=== PATIENT | female | born 2000 | race Caucasian/White ===

== ENCOUNTER → 2019-06-24 | Outpatient (CLI) | payer BC ==
[2019-06-24 12:34] VITALS: BP 142/90; PULSE 122; RESP 20; TEMP 98.5; BMI 38.1
--- NOTE | 2019-06-24 13:10 | P.GSHP ---
History of Present Illness H&P Date: 06/24/19 Chief Complaint: Sores under both breast Lety is a 18-year-old white female with a complaint of bilateral inferior breast sores. This was on her breast. They have been present for about 2 years. They never go away completely. The areas to drain at times. These have never been treated before. She does not develop them on the upper part of her breast. She states that her breasts are sore all the time. This is not related to her menstrual cycle. She has had intermittent nodularity which goes away. She has never had a mammogram ultrasound. She does not feel any lumps or masses in her breast at this time. The patient does not drink any caffeinated beverages. She does not smoke and is not exposed to secondhand smoke. She eats chocolate only occasionally. Family History: maternal grandmother: of breast cancer dx. in her 30's maternal grandfather: prostate cancer maternal grandmother: breast cancer maternal great aunts (two): breast cancer both in their 50's paternal uncle: bladder cancer paternal uncle: lung cancer Patient's father is on dialysis for 15 years secondary to renal failure related to diabetes and hypertension Hormonal History: menarche: 11 periods: on BCP to regulate them, had polycystic ovarian disease and had not had periods for a long period of time until started on control pills G0 not sexually active BCP: 8 months hormones: none Past surgical history: Tonsils, adenoids, and teeth removed. Multiple myringotomies and tubes placed in her ears Medical history: HTN Diabetic Tachycardia high triglycerides Social History: smoke: none alcohol: none drugs: none - Constitutional Constitutional: Reports sweats - EENT Eyes: denies blurred vision, denies pain Ears: deny: decreased hearing, tinnitus Ears, nose, mouth and throat: Reports headache, Denies sore throat - Breasts Breasts: bilateral: as per HPI - Cardiovascular Cardiovascular: Reports high blood pressure - Respiratory Respiratory: Denies cough, Denies 7 - Gastrointestinal Comment: PUD, reflux - Genitourinary (Female) Comment: polycystic ovarian disease - Menstruation Comment: cycle regular on BCP - Musculoskeletal Musculoskeletal: Denies myalgias - Integumentary Integumentary: Denies pruritus, Denies rash - Neurological Neurological: Denies numbness, Denies weakness - Psychiatric Comment: spent 2 weeks in [facility], stroke or suicidal and cutting, history of bipolar Psychiatric: Reports anxiety, Reports depression - Endocrine Comment: pre-diabetic - Hematologic/Lymphatic Comment: none - Allergic/Immunologic Allergic/Immunologic: Reports as per HPI Past Medical History Past Medical History: Hypertension Past Surgical History: Adenoidectomy, Tonsillectomy Past Psychological History: ADD/ADHD, Anxiety, Bipolar, Depression Smoking Status: Never smoker Medications and Allergies Home Medications Medication Instructions Recorded Confirmed Type Ergocalciferol (Vitamin D2) 50,000 unit PO WEEKLY 06/24/19 06/24/19 History [Vitamin D2] Fenofibrate 120 mg PO HS 06/24/19 06/24/19 History Lisinopril [Zestril] 10 mg PO HS 06/24/19 06/24/19 History Melatonin 5 mg PO HS 06/24/19 06/24/19 History Metoprolol Succinate (ER) [Toprol 50 mg PO HS 06/24/19 06/24/19 History Xl] Norgestimate-Ethinyl Estradiol 1 tab PO HS 06/24/19 06/24/19 History [Sprintec 28 Day Tablet] Omeprazole 20 mg PO HS 06/24/19 06/24/19 History metFORMIN HCL [metFORMIN HCL ER 1,000 mg PO BID 06/24/19 06/24/19 History Osmotic] Allergies Allergy/AdvReac Type Severity Reaction Status Date / Time Cephalosporins Allergy Rash/Hives Unverified 06/24/19 12:11 Penicillins Allergy Rash/Hives Unverified 06/24/19 12:11 Sulfa (Sulfonamide Allergy Rash/Hives Unverified 06/24/19 12:11 Antibiotics) Surgical - Exam BMI 38.1 - General obese - Eyes normal ocular movement - ENT no hearing loss, no congestion - Neck no masses, trachea midline, no venous distension - Respiratory normal respiratory effort, clear to auscultation - Cardiovascular Rhythm: regular - Abdomen Abdomen: soft, non tender, no guarding, no rigid, no rebound - Integumentary Examination integument reveals pockmarks associated with folliculitis in intermittent stages of healing - Neurologic no disoriented, no combative - Musculoskeletal normal gait, normal posture - Psychiatric oriented to time, oriented to place, memory intact Breast examination: Right breast: Multiple positional exam no dominant masses or nodules of concern, fibrocystic changes On the inferior surface of the breasts are pockmarks which appear to be associated with folliculitis and intermittent stages of healing, there is nothing that is present to drain at the present time Right axilla: No adenopathy of concern Left breast: Multi-positional exam no dominant masses or nodules of concern, fibrocystic changes, and inferior surfaces of the breast are pockmarks which appear to be associated with folliculitis and intermittent stages of healing Patient states she has back pain related to the size of her breast and the fact that she slouch is related to the large size of her breasts. The patient also complains of indentation in her shoulders related to her bra straps and this heaviness of her breast. Bra size 44DD Assessment and Plan Assessment: Impression: 1. Fibrocystic breast changes 2. Folliculitis: Related to large size of breast, patient accumulates in the breast 3. High risk breast cancer with family history 4. Back pain related to large size of breast 5. Hypertension 6. Prediabetic 7. Prior history of bipolar disorder, anxiety, depression, 8. Family history of cancer 9. Polycystic ovarian disease Plan: 1. Clindamycin for folliculitis 2. Plastic surgery consult for possible breast reduction 3. Genetic counseling related to family history of breast cancer 4. Medical management of medical conditions 5. Patient encouraged to continue weight loss, patient is going to wear a supportive bra and keep the area dry for the folliculitis originated 6. follow up in three months 7. continue weight loss CC: Dr. Montez Qureshi
== END | disposition home or self-care (01) ==
LOC: WWCWWP 11:50
PROVIDERS: ATTEND Surgery
DX: Z53.9 Procedure and treatment not carried out, unspecified reason (principal)

== ENCOUNTER → 2019-09-24 | Outpatient (CLI) | payer BC ==
[2019-09-24 16:08] VITALS: BP 152/119; PULSE 133; RESP 18; TEMP 98.4; BMI 38.9
--- NOTE | 2019-09-24 16:18 | P.PN ---
Subjective Progress Note Date: 09/24/19 Lety is a 18-year-old white female with a complaint of bilateral inferior breast sores. They have been present for about 2 years. They never go away completely. The areas drain at times. These have never been treated before. She does not develop them on the upper part of her breast. She states that her breasts are sore all the time. The patient was given. Prescription for clindamycin and her last visit and this seems to have helped. She also has an appointment with plastic surgery for possible breast reduction. All areas of superficial abscesses appear to have healed except for one which remains inflamed in the medial aspect of the lower quadrant of the right breast. This is approximately 1.5 x 1 cm in size. There is no drainage from the area but the patient states that she keeps medicated with antibiotic ointment on it. The patient has not yet gone for genetic counseling. Recent is working out at the gym she has had no not weight loss. The patient is wearing a support bra and keeping the area of the folliculitis dry. This is not related to her menstrual cycle. She has had intermittent nodularity which goes away. She has never had a mammogram or ultrasound. She does not feel any lumps or masses in her breast at this time. The patient does not drink any caffeinated beverages. She does not smoke and is not exposed to secondhand smoke. She eats chocolate only occasionally. Family History: maternal grandmother: of breast cancer dx. in her 30's maternal grandfather: prostate cancer maternal grandmother: breast cancer maternal great aunts (two): breast cancer both in their 50's paternal uncle: bladder cancer paternal uncle: lung cancer Patient's father is on dialysis for 15 years secondary to renal failure related to diabetes and hypertension Hormonal History: menarche: 11 periods: on BCP to regulate them, had polycystic ovarian disease and had not had periods for a long period of time until started on control pills G0 not sexually active BCP: 8 months hormones: none Past surgical history: Tonsils, adenoids, and teeth removed. Multiple myringotomies and tubes placed in her ears Medical history: HTN Diabetic Tachycardia high triglycerides Social History: smoke: none alcohol: none drugs: none - Constitutional Constitutional: Reports sweats - EENT Eyes: denies blurred vision, denies pain Ears: deny: decreased hearing, tinnitus Ears, nose, mouth and throat: Reports headache, Denies sore throat - Breasts Breasts: bilateral: as per HPI - Cardiovascular Cardiovascular: Reports high blood pressure - Respiratory Respiratory: Denies cough, Denies 7 - Gastrointestinal Comment: PUD, reflux - Genitourinary (Female) Comment: polycystic ovarian disease - Menstruation Comment: cycle regular on BCP - Musculoskeletal Musculoskeletal: Denies myalgias - Integumentary Integumentary: Denies pruritus, Denies rash - Neurological Neurological: Denies numbness, Denies weakness - Psychiatric Comment: spent 2 weeks in [facility], stroke or suicidal and cutting, history of bipolar Psychiatric: Reports anxiety, Reports depression - Endocrine Comment: pre-diabetic - Hematologic/Lymphatic Comment: none Objective - Vital Signs Vital signs: Vital Signs Temp 98.4 F 09/24/19 16:06 Pulse 133 H 09/24/19 16:06 Resp 18 09/24/19 16:06 BP 152/119 09/24/19 16:06 Pulse Ox 99 09/24/19 16:06 Intake & Output 09/23/19 09/24/19 09/24/19 18:59 06:59 18:59 Weight 106.141 kg - Exam BMI 38.9 - Constitutional General appearance: Present: obese - EENT Eyes: Present: EOMI ENT: Present: hearing grossly normal - Respiratory Respiratory: bilateral: CTA - Cardiovascular Rhythm: regular Heart sounds: normal: S1, S2 - Integumentary Integumentary: Present: normal turgor - Musculoskeletal Musculoskeletal: Present: gait normal - Psychiatric Psychiatric: Present: A&O x's 3, appropriate affect, intact judgment & insight - Additional findings Additional findings: Examination of the integument of the breast reveals that the areas of folliculitis. Healed with the exception of a proximally 1 x 0.5 cm area of erythema in the medial aspect of the lower inner right breast. Mild moisture end of the breast secondary to the large size/ possible fungal infection Assessment and Plan Assessment: Depression: 1. Fibrocystic breast changes 2. Folliculitis resolving 3. High risk breast cancer with family history 4. Back pain related to large size of breast 5. Hypertension 6. Prediabetic 7. Questionable fungal infection under bilateral breast History of bipolar disorder, anxiety, depression 8. Family history of cancer 9. Polycystic ovarian disease Plan: 1. Continue present therapy of her folliculitis 2. Patient has appointment with plastic surgery 3. Has consider genetic counseling 4. Will give patient nystatin to use under her breast 5. Encourage patient to continue to lose weight 6. Patient was supported in 7. Follow up here after seen by plastic surgery Time spent 20 minutes. CC: Montez Wilkerson
== END | disposition home or self-care (01) ==
LOC: WWCWWP 15:29
PROVIDERS: ATTEND Surgery
DX: Z53.9 Procedure and treatment not carried out, unspecified reason (principal)

== ENCOUNTER 2021-05-03 13:11 | Day surgery (SDC) | payer BC ==
[2021-05-02 10:24] VITALS: BMI 35.5
[~2021-05-03 13:11] MED LIST: DEXAMETHASONE SOD PHOSPHATE 4 MG/ML 1 ML VIAL IV ONE; FAMOTIDINE 20 MG/2 ML VIAL IV PRN; GENTAMICIN 120 MG in SODIUM CHLORIDE 0.9% 100 ML IVPB PRN; HYDROmorphone 0.5 MG/0.5 ML SYRINGE IVP PRN; LACTATED RINGERS 1,000 ML IV SCH; ONDANSETRON 4 MG/2 ML VIAL IVP ONE
--- NOTE | 2021-05-03 13:15 | P.HPIHPCON ---
History of Present Illness H&P Date: 05/03/21 20-year-old female with history of 3 mm left-sided proximal stone, she underwent a stent placement on April 23 secondary to a UTI. She presents today for definitive stone management. Option of ureteroscopy with holmium laser was discussed with her. Discussed the risk which includes but not limited to bleeding, infection, injury to the ureter. She understood all the risk and agreed to proceed Consent for Procedure: I have explained the operation/procedure to the patient, including the risks, benefits, side effects, alternative therapies (including not receiving the proposed treatment or service), the likelihood of the patient achieving his/her goals, and potential recuperation problems for the procedure/sedation/analgesia, as well as any blood products, if indicated. I also explained to the patient the risks, benefits and side effects of the alternatives, as well as the risks related to not receiving the proposed procedure, care, treatment, or services. Past Medical History Past Medical History: Diabetes Mellitus, GERD/Reflux, Hyperlipidemia, Hypertension Additional Past Medical History / Comment(s): Polycystic ovary syndrome (PCOS); tachycardia; right eardrum perforation; KIDNEY STONES History of Any Multi-Drug Resistant Organisms: None Reported Past Surgical History: Adenoidectomy, Breast Surgery, Tonsillectomy Additional Past Surgical History / Comment(s): bilateral ear tube surgery; bilateral Tympanostomy tubes; BONE MARROW BX, BREAST REDUCTION Past Anesthesia/Blood Transfusion Reactions: No Reported Reaction Smoking Status: Never smoker - Past Family History Father Family Medical History: Hypertension Additional Family Medical History / Comment(s): end stage renal failure; hemodialysis; diabetic; Mother Additional Family Medical History / Comment(s): migraines; hypothyroidism; osteoarthritis; raynaud's disease; spinal issues; fibromyalgia; carpal tunnel; Medications and Allergies Home Medications Medication Instructions Recorded Confirmed Type Ergocalciferol (Vitamin D2) 50,000 unit PO SA 06/24/19 05/02/21 History [Vitamin D2] Fenofibrate 120 mg PO HS 06/24/19 05/02/21 History Lisinopril [Zestril] 10 mg PO HS 06/24/19 05/02/21 History metFORMIN HCL [metFORMIN HCL ER 1,000 mg PO BID 06/24/19 05/02/21 History Osmotic] Pantoprazole [Protonix] 1 tab PO HS 09/24/19 05/02/21 History Alyacen 1 tab PO HS 05/02/21 History Lasmiditan Succinate [Reyvow] 100 mg PO DIRECTED PRN 05/02/21 05/02/21 History Metoprolol Tartrate [Lopressor] 50 mg PO BID 05/02/21 05/02/21 History Allergies Allergy/AdvReac Type Severity Reaction Status Date / Time Cephalosporins Allergy Rash/Hives Unverified 05/02/21 09:56 Penicillins Allergy Rash/Hives Unverified 05/02/21 09:56 Sulfa (Sulfonamide Allergy Rash/Hives Unverified 05/02/21 09:56 Antibiotics) Surgical - Exam - General no distress, no pain - Eyes PERRL, normal ocular movement - ENT normal nares, normal mucosa - Respiratory normal expansion, normal respiratory effort - Psychiatric oriented to time, oriented to person, oriented to place Assessment and Plan Assessment: 20-year-old female history of left-sided ureteral stone -Or for left-sided ureteroscopy with holmium laser, stone basketing
--- NOTE | 2021-05-03 13:26 | XR ---
EXAMINATION TYPE: XR KUB DATE OF EXAM: 05/03/2021 1:22 PM CLINICAL HISTORY: left stone TECHNIQUE: Single supine KUB image of the abdomen is obtained. COMPARISON: None. FINDINGS: Scattered gas is seen in non-distended small bowel loops. Gas and fecal material is seen in non-distended colon. There is no visceromegaly, pneumoperitoneum, or abnormal calcification apprecia betty. The lung bases are clear and the osseous structures are intact. Left ureteral stent is present. IMPRESSION: Left ureteral stent is present.
[2021-05-03 14:24] LABS: Glucose,Whole Blood 140 mg/dL (75-99)
[2021-05-03] MEDS ORDERED: LIDOCAINE 1% (10MG/ML) FOR IV START INTRADERMA ONE (14:26)
[2021-05-03] MEDS ORDERED: ONDANSETRON 4 MG/2 ML VIAL ONE ×2 (14:27→17:32)
[2021-05-03] MEDS ORDERED: PROPOFOL 10 MG/ML 20 ML VIAL IV ONE (15:08)
[2021-05-03] MEDS ORDERED: MIDAZOLAM 2 MG/2 ML VIAL ONE (15:08)
[2021-05-03] MEDS ORDERED: fentaNYL (PF) 50 MCG/ML 2 ML AMP ONE (15:08)
[2021-05-03] MEDS ORDERED: LIDOCAINE 1% INJ 10MG/ML (20 ML MDV) ONE (15:08)
[2021-05-03] MEDS ORDERED: PHENYLEPHRINE-0.9% NACL SYG 1,000 MCG/10 ML SYRINGE ONE (15:08)
[2021-05-03] MEDS ORDERED: SUCCINYLCHOLINE CHLORIDE 100 MG/5 ML SYR IV ONE (15:08)
[2021-05-03] MEDS ORDERED: LACTATED RINGERS 1,000 ML IV ONE (15:46)
--- NOTE | 2021-05-03 16:06 | P.OP ---
Date of Procedure: 05/03/21 Preoperative Diagnosis: Left ureteral calculi Postoperative Diagnosis: Left renal calculi Procedure(s) Performed: Cystoscopy, left ureteroscopy, holmium laser lithotripsy, stent removal Implants: None Anesthesia: REINAA Surgeon: Levy Castillo Estimated Blood Loss (ml): 5 Pathology: none sent Condition: stable Disposition: PACU Indications for Procedure: 20-year-old female with history of 3 mm left-sided proximal stone, she underwent a stent placement on April 23 secondary to a UTI. She presents today for definitive stone management. Option of ureteroscopy with holmium laser was discussed with her. Discussed the risk which includes but not limited to bleeding, infection, injury to the ureter. She understood all the risk and agreed to proceed Operative Findings: No evidence of left ureteral calculi, small stones within the midpole that was dusted Description of Procedure: Patient brought to the operating room, general anesthesia was induced. She was prepped and draped in sterile fashion and placed in dorsal lithotomy position. Cystoscopy fitted with a 21-[place] sheath was inserted per urethra, cystoscopy was performed which showed no abnormality within the bladder. Attention was th en carried to the left ureteral orifice, using the stent grasper the stent was removed. Next a semirigid ureteroscope was inserted through the urethra and advanced up the left ureteral orifice, no stones was encountered along the ureter. Pullback ureteroscopy was performed which showed no injury to the ureter or any evidence of ureteral stone. Next a sensor wire was advanced through the ureteroscope and the ureteroscope was withdrawn with wire in place. Next a 1214 [place] access sheath was passed over the wire into the proximal ureter, flexible ureteroscope was inserted through the access sheath and renoscopy was performed which showed a small stone within the mid pole, but no additional stones. The small stone in the midpole was dusted using the holmium laser. Repeat renoscopy showed no additional stones or injury to the kidney. Pullback ureteroscopy was performed showed no injury to the ureter or any ureteral stone. There was no evidence of ureteral edema or ureteral injury, thus no stent was placed. The bladder was emptied at the end of the case. Patient tolerated the procedure well and was taken to PACU in stable condition
[2021-05-03 16:15] VITALS: TEMP 96.8
[2021-05-03 16:40] LABS: Glucose,Whole Blood 163 mg/dL (75-99)
[2021-05-03] MEDS ORDERED: HYDROcodone/APAP 5-325MG 1 EACH TAB ONE (17:04)
[2021-05-03] MEDS ORDERED: HYDROcodone/APAP 5-325MG 1 EACH TAB PO ONE (17:06)
[2021-05-03] MEDS ORDERED: ONDANSETRON 4 MG/2 ML VIAL IVP ONE (17:35)
[2021-05-03 18:01] VITALS: BP 129/83; PULSE 96; RESP 18
--- NOTE | 2021-05-04 09:56 | FL ---
EXAMINATION TYPE: FL guidance operating room DATE OF EXAM: 05/03/2021 HISTORY: Fluoroscopy time 5 seconds of fluoroscopy provided. IMPRESSION: 1. Fluoroscopy time.
== END 2021-05-03 18:09 | disposition home or self-care (01) ==
LOC: OR 13:11
PROVIDERS: ATTEND Urology
DX: N20.1 Calculus of ureter (principal); Z46.6 Encounter for fitting and adjustment of urinary device; E11.9 Type 2 diabetes mellitus without complications; K21.9 Gastro-esophageal reflux disease without esophagitis; E78.5 Hyperlipidemia, unspecified; I10 Essential (primary) hypertension; E28.2 Polycystic ovarian syndrome; R00.0 Tachycardia, unspecified; G47.33 Obstructive sleep apnea (adult) (pediatric); E88.81 Metabolic syndrome and other insulin resistance; E66.01 Morbid (severe) obesity due to excess calories; Z68.36 Body mass index [BMI] 36.0-36.9, adult; Z87.442 Personal history of urinary calculi; Z90.89 Acquired absence of other organs; Z98.890 Other specified postprocedural states; Z96.22 Myringotomy tube(s) status; Z82.49 Family history of ischemic heart disease and other diseases of the circulatory system; Z83.3 Family history of diabetes mellitus; Z84.1 Family history of disorders of kidney and ureter; Z82.61 Family history of arthritis; Z83.49 Family history of other endocrine, nutritional and metabolic diseases; Z82.69 Family history of other diseases of the musculoskeletal system and connective tissue; Z84.89 Family history of other specified conditions; Z79.84 Long term (current) use of oral hypoglycemic drugs; Z79.899 Other long term (current) drug therapy; Z88.1 Allergy status to other antibiotic agents; Z88.0 Allergy status to penicillin; Z88.2 Allergy status to sulfonamides
CPT/HCPCS: 81025; 74018; 52353; C1769 ×2; J2250; J1100; J2405; J2001; J3010; J1580; J2370; J0330; J2704